=== PATIENT | male | born 1995 | race Caucasian/White ===

== ENCOUNTER 2023-08-07 15:56 | Emergency (ER) | payer BC, SELFPAY ==
[2023-08-07 16:06] VITALS: BP 141/67; PULSE 106; RESP 18; TEMP 36.8; O2SAT 98
--- NOTE | 2023-08-07 16:09 | ED.LOWEXIN ---
HPI - Extremity Injury (Lower) General Chief Complaint: Wound/Laceration Stated Complaint: Fall Injury/Right Leg Laceration Source: patient Mode of arrival: ambulatory Limitations: no limitations History of Present Illness HPI Narrative: 27-year-old male presented for complaint of four lacerations to the right outer thigh sustained this morning around 1030. 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 Today, he reports falling off of the last step of a ladder and the knife cut his leg, but is unsure of exact mechanism of injury. Pt continued to work throughout the day. Bleeding stopped. Unsure of last tetanus. Related Data Home Medications Medication Instructions Recorded Confirmed No Home Medications 08/07/23 08/07/23 Allergies Allergy/AdvReac Type Severity Reaction Status Date / Time No Known Allergies Allergy Unverified 08/07/23 16:23 Review of Systems Review of Systems: CONSTITUTIONAL: Denies body aches, fever, chills, or sweats. EYES: Denies visual changes, redness, or discharge. ENT: Denies rhinorrhea, congestion CARDIOVASCULAR: Denies chest pain, palpitations, or edema. RESPIRATORY: Denies cough or dyspnea. GASTROINTESTINAL: Denies abdominal pain, nausea, vomiting, or diarrhea. SKIN: reports thigh lacerations MUSCULOSKELETAL: Denies back pain, joint pain, or myalgia. NEUROLOGIC: Denies headache, numbness, tingling, or weakness. PMFSH Comments At time of signature, I have reviewed and agree with nursing past medical, surgical, social and family history unless otherwise noted. Please see nursing chart for further information. There is no relevant family history pertinent to the presenting complaint Exam Narrative: GENERAL: Well-appearing HEAD: Normocephalic, atraumatic. EYES: conjunctivae clear, and EOMI. ENT: Mucous membranes moist. Oropharynx without edema, erythema or lesions. NECK: Supple. No lymphadenopathy CHEST: Clear to auscultation. HEART: Regular rate and rhythm. SKIN: Warm, dry. Right lateral thigh lacerations x4. Proximal laceration approximately 1 cm and gaping, Distal laceration 0.5cm, wound edges approximate easily. 2 additional puncture wounds noted <0.5cm. No active bleeding. Full ROM to RLE. NEURO: Alert and oriented x3. Course Course Emergency Course: Patient is aware of diagnosis, understands and agrees to treatment plan. Anticipatory guidance given. Patient agrees to follow-up as directed and is aware of reasons to seek care at the emergency department. Portions of this record may have been created with voice recognition software Level of Care: Express Care Visit Vital Signs Vital signs: Vital Signs Temperature 98.3 F 08/07/23 16:06 Pulse Rate 106 H 08/07/23 16:06 Respiratory Rate 18 08/07/23 16:06 Blood Pressure 141/67 H 08/07/23 16:06 Pulse Oximetry 98 08/07/23 16:06 Oxygen Delivery Room Air 08/07/23 16:06 Temperature 98.3 F 08/07/23 16:23 Pulse Rate 106 H 08/07/23 16:23 Respiratory Rate 18 08/07/23 16:23 Blood Pressure 141/67 H 08/07/23 16:23 Pulse Oximetry 98 08/07/23 16:23 Oxygen Delivery Room Air 08/07/23 16:23 Reviewed Procedures Laceration right thigh: Date: 08/07/23 Size (cm): 1 Description: linear and clean Depth: simple, single layer Local Anesthetic: lidocaine 1% Amount of anesthesia used (mL): 2 Pre-repair: wound explored and irrigated (30mL) ====== Skin Level ====== Skin layer closed with: nylon Size (cm): 5-0 Number of sutures: 3 Technique: simple, interrupted ====== Subcutaneous Layer ====== ====== Muscle Layer ====== ====== Tendon Layer ====== Dressing: The procedure and its alternatives were reviewed with patient. Risks were reviewed with patient including infection and damage to nearby structures. Patient provided verbal informed
[2023-08-07 16:23] VITALS: BP 141/67; PULSE 106; RESP 18; TEMP 36.8; O2SAT 98
[2023-08-07] MEDS: TETANUS,DIPHTHERIA,AC PERTUSSIS ADULT (0.5 ML) BOOSTRIX IM (16:45)
== END 2023-08-07 17:04 | disposition home or self-care (01) ==
PROVIDERS: Emergency Provider Nurse Practitioner Family; PCP Internal Medicine
DX: S71.111A Laceration without foreign body, right thigh, initial encounter (principal); W26.0XXA Contact with knife, initial encounter; Y99.0 Civilian activity done for income or pay; Z23 Encounter for immunization
CPT/HCPCS: 12001; 90471; 90715; 99212; G0463